=== PATIENT | female | born 1995 | race Caucasian/White ===

== ENCOUNTER 2017-02-15 09:50 | Emergency (ER) | payer OTHER ==
[2017-02-15 09:58] VITALS: O2SAT 98
--- NOTE | 2017-02-15 11:51 | EDPHY ---
H & P Stated Complaint: twisted r knee running last week/increasing pain/swelling - Personal History LMP (Females 10-55): 1-7 Days Ago Current Tetanus/Diphtheria Vaccine: Yes - Medical/Surgical History Hx Asthma: No Hx Chronic Respiratory Disease: No Hx Diabetes: No Hx Cardiac Disease: No Hx Renal Disease: No Hx Cirrhosis: No Hx Alcoholism: No Hx HIV/AIDS: No Hx Splenectomy or Spleen Trauma: No Other PMH: denies - Social History Smoking Status: Never smoked HPI/ROS: Chief complaint: Right knee pain History of present illness: 21-year-old female who presents to the emergency department for right knee pain. Patient was running approximately a week ago when it started to become sore. She states during the week while kneeling she did feel a pop in the knee. Since then symptoms have worsened. It makes it difficult to move the knee. She denies history of direct trauma. She denies other associated signs or symptoms including no abnormal coolness or paresthesias in the leg. No other injuries or discomfort reported. (Alireza Duran) - Physical Exam Exam: General: Alert, nontoxic Skin: No open wounds to the right lower extremity Musculoskeletal: There is no erythema or edema of the knee. There is no warmth on palpation. There is tenderness over the quadriceps tendon and to a lesser degree patellar ligament. She is able to lift her whole leg off of the examination table. She has decreased flexion and extension secondary to discomfort. The knee joint appears stable. Vascular: DP and PT pulses 2+. Neurologic: Sensation intact in the right lower extremity. (Alireza Duran) Constitutional: Initial Vital Signs Temperature (C) 36.7 C 02/15/17 09:55 Heart Rate 93 02/15/17 09:55 Respiratory Rate 16 02/15/17 09:55 Blood Pressure 102/68 02/15/17 09:55 O2 Sat (%) 98 02/15/17 09:55 O2 Delivery Mode Room Air Allergies/Adverse Reactions: No Known Allergies Allergy (Unverified 02/15/17 09:55) Home Medications: Medication Instructions Recorded Loryna 3 mg-0.02 mg Tablet 02/15/17 Medical Decision Making - Diagnostics Imaging: I viewed and interpreted images myself Procedures: Procedure: Splint placement. A Velcro knee immobilizing splint was applied. After application of the splint I returned and re-examined the patient. The splint was adequately immobilizing the joint and distal to the splint the patient's circulation and sensation was intact. She is given crutches. (Alireza Duran) ED Course/Re-evaluation: Patient seen under the supervision of my secondary supervising physician Dr. Amita Carrington. Patient presents to the emergency department for week history of right knee pain. Her leg is neurovascularly intact. X-rays are negative. Her discomfort appears to be primarily over the quadriceps tendon and to a lesser degree over the patellar ligament. She is placed in a knee immobilizer and placed on crutches. Home care is discussed including pain management. She is referred to Orthopedics for recheck. Return precautions are given. The patient voiced understanding and agreement with plan. (Alireza Duran) The patient was evaluated and managed by the physician assistant community director. I have reviewed this chart and I agree with the findings and plan of care as documented , as indicated by my signature. I am the secondary supervising physician. ( Amita Carrington) Differential Diagnosis: Included but not limited to contusion, sprain or strain, cartilaginous injury, bony fracture, unlikely joint arthropathy (Alireza Duran) Departure - Departure Disposition: Home, Routine, Self-Care Clinical Impression: Knee sprain Condition: Good Instructions: Knee Sprain (ED) Additional Instructions: Follow-up with orthopedics for continued evaluation and care Use ibuprofen 600 mg 3 times a day for the next 2-3 days Ice the injury, 20 minutes on, 3 times daily If symptoms worsen or new symptoms develop return to the emergency room for recheck Referrals: [facility] [Other] - As per Instructions Lázaro Hood MD [Medical Doctor] - As per Instructions
[2017-02-15 12:03] VITALS: BP 100/65; PULSE 89; RESP 14; TEMP 97.6
== END 2017-02-15 12:22 | disposition home or self-care (01) ==
DX: S83.91XA Sprain of unspecified site of right knee, initial encounter (principal); X58.XXXA Exposure to other specified factors, initial encounter; Y99.8 Other external cause status; Y93.02 Activity, running

== ENCOUNTER 2017-05-23 13:55 | Emergency (ER) | payer OTHER ==
[2017-05-23 14:03] VITALS: TEMP 98.4; O2SAT 98
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
[2017-05-23] MEDS ORDERED: ONDANSETRON 4MG PREPACK#2 BTL TAKEHOME ONE (16:23)
[2017-05-23 16:35] VITALS: BP 102/63; PULSE 65; RESP 14
== END 2017-05-23 16:37 | disposition home or self-care (01) ==
DX: S06.0X0A Concussion without loss of consciousness, initial encounter (principal); V49.49XA Driver injured in collision with other motor vehicles in traffic accident, initial encounter; Y92.410 Unspecified street and highway as the place of occurrence of the external cause; Y99.8 Other external cause status; Y93.89 Activity, other specified